=== PATIENT | female | born 1965 | race Caucasian/White ===

== ENCOUNTER 2016-06-26 06:58 | Emergency (ER) | payer MEDICARE, MEDICAID ==
[2016-06-26] MEDS ORDERED: HYDROmorphone 2 MG/ML SDV IM ONE (07:36)
--- NOTE | 2016-06-26 08:29 | EDM.PDOC ---
ED HPI Trauma - General Chief Complaint: Lower Extremity Injury/Pain Stated Complaint: PAIN IN BACK AND LEGS, FALLING Time Seen by Provider: 06/26/16 07:15 Source: Reports: Patient, Family History Limitations: Reports: Physical impairment - History of Present Illness INITIAL COMMENTS - FREE TEXT/NARRATIVE: 51 NA female came to the ed due to chronic low back pain, which is worsening. No trauma, Amitriptylin does not help, pt is "allegic" to motrin and morphin. Pain is shooting from her back radiating down to her bilat lower extremities. Pt is ambulating with a wheelchair. No stool or urine incontinence. Pt has frequent falls, Fibromyalgia and peripheral neuropathy Symptom Onset Date: 06/25/16 Symptom Onset Time: 07:00 Occurred When: other (chronic 3 years ago, worse since yesterday.) Allergies/ADRs: Allergies aspirin Allergy (Verified 06/26/16 07:17) Hives celecoxib [From Celebrex] Allergy (Verified 06/26/16 07:17) Mouth Sores ibuprofen Allergy (Verified 06/26/16 07:17) Hives Latex, Natural Rubber Allergy (Verified 06/26/16 07:17) Itching morphine Allergy (Verified 06/26/16 07:17) Nausea Penicillins Allergy (Verified 06/26/16 07:17) Hives Home Medications: Ambulatory Orders Acetaminophen [Tylenol Arthritis] 650 mg PO QID PRN 02/11/13 [Confirmed 06/26/16 ] Multivitamin [Daily Multiple Vitamin] 1 tab PO DAILY 02/11/13 [Confirmed ] Omeprazole [Omeprazole] 40 mg PO DAILY 02/11/13 [Confirmed 06/26/16] Amitriptyline [Elavil] 150 mg PO BEDTIME 11/15/13 [Confirmed 06/26/16] buPROPion HCl [Wellbutrin SR] 150 mg PO DAILY 06/10/14 [Confirmed 06/26/16] Docusate Sodium [Doc-Q-Lace] 200 mg BEDTIME 07/22/14 [Confirmed 06/26/16] Zonisamide [Zonisamide] 25 mg PO BID 07/22/14 [Confirmed 06/26/16] busPIRone HCl [Buspirone HCl] 7.5 mg PO BID 07/22/14 [Confirmed 06/26/16] Venlafaxine HCl [Venlafaxine ER] 1 tab PO DAILY 04/17/15 [Confirmed 06/26/16] ARIPiprazole [Abilify] 2 mg PO DAILY 08/06/15 [Confirmed 06/26/16] hydrOXYzine Pamoate [Vistaril] 1 cap PO BID 11/12/15 [Confirmed 06/26/16] Acetaminophen/HYDROcodone [[place] 325-5 MG] 1 tab PO Q4H PRN #20 tab 02/07/16 [ Confirmed 06/26/16] oxyCODONE HCl/Acetaminophen [Percocet 5-325 mg Tablet] 1 each PO Q6HR PRN #10 tablet 06/26/16 Past Medical History HEENT History: Reports: Impaired vision Other HEENT History: enlarged thyroid 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: Reports: Musculoskeletal History: Reports: Neck pain, chronic Neurological History: Reports: Neuropathy, peripheral Psychiatric History: Reports: Anxiety, Depression Endocrine/Metabolic History: Reports: Other (see below) Other Endocrine/Metabolic History: enlarged thyroid - Past Surgical History GI Surgical History: Reports: EGD Social & Family History - Family History Family Medical History: Noncontributory - Tobacco Use Smoking Status *Q: Current Every Day Smoker Years of Tobacco use: 34 Packs/Tins Daily: 0.5 Used Tobacco, but Quit: No Second Hand Smoke Exposure: No - Caffeine Use Caffeine Use: Reports: Coffee, Soda, Tea - Alcohol Use Days Per Week of Alcohol Use: 0 - Recreational Drug Use Recreational Drug Use: No - Living Situation & Occupation Living situation: Reports: alone Occupation: disabled Review of Systems - Review of Systems Review Of Systems: See Below Constitutional: Reports: no symptoms Eyes: Reports: no symptoms Ears: Reports: no symptoms Nose: Reports: no symptoms Mouth/Throat: Reports: no symptoms Respiratory: Reports: No Symptoms Cardiovascular: Reports: no symptoms GI/Abdominal: Reports: No symptoms Genitourinary: Reports: no symptoms Musculoskeletal: Reports: back pain Skin: Reports: no symptoms Neurological: Reports: No Symptoms Psychiatric: Reports: no symptoms Trauma Exam - Physical Exam Exam: See Below Exam Limited By: No limitations General Appearance: Reports: alert, WD/WN, mild distress, obese Head: Reports: atraumatic, normocephalic Eyes: bilateral eye: normal inspection Ears: Reports: normal external exam Nose: Reports: normal inspection, normal mucousa, no blood Throat/Mouth: Reports: Normal inspection, Normal lips, Normal gums, Normal voice , No airway compromise Neck: Reports: non-tender, full range of motion, normal alignment, normal inspection Respiratory Exam: Reports: no respiratory distress, lungs clear, normal breath sounds, no accessory muscle use, chest non-tender Cardiovascular: Reports: normal peripheral pulses, regular rate, rhythm, no edema, no gallop, no JVD, no murmur, no rub GI/Abdominal: Reports: normal bowel sounds, soft, non tender, no organomegaly (Female) Exam: Deferred Rectal (Female) Exam: Deferred Back: Reports: decreased range of motion, vertebral tenderness Neurologic: Reports: bay stocker II-XII nml as tested, no motor/sensory deficits, alert , oriented x 3 Skin: Reports: Normal color, Warm/dry - Maysel Coma Score Best Eye Response (Tessa): (4) open spontaneously Best Verbal Response (Tessa): (5) oriented Best Motor Response (Maysel): (6) obeys commands Maysel Total: 15 Course - Vital Signs Text/Narrative:: 51 NA female came to the ed due to chronic low back pain, which is worsening. No trauma, Amitriptylin does not help, pt is "allegic" to motrin and morphin. Pain is shooting from her back radiating down to her bilat lower extremities. Pt is ambulating with a walker. No stool or urine incontinence. Pt has frequent falls, Fibromyalgia and peripheral neuropathy PE: Chronic low back pain with sciatica Imaging: CT L spine: Deg disease with central spinal stenosis. Impression: Chronic low back pain with acute exacerbation, spinal stenosis. Tx: Dilaudid Reexam: Improved Plan: D/C with instructions Last Recorded V/S: Last Vital Signs Temp 36.4 C 06/26/16 07:15 Pulse 80 06/26/16 07:15 Resp 17 06/26/16 07:15 BP 98/65 06/26/16 07:15 Pulse Ox 100 06/26/16 07:15 - Orders/Labs/Meds Orders: Active Orders 24 hr Category Date Time Status Lumbar Spine wo Cont [CT] Stat Exams 06/26/16 07:35 Taken Meds: Medications Discontinued Medications Generic Name Dose Route Start Last Admin Trade Name Freq PRN Reason Stop Dose Admin Hydromorphone HCl 1 mg 04/08/17 07:36 06/26/16 07:43 Dilaudid IM 06/26/16 07:37 1 mg ONETIME ONE Administration Departure - Departure Time of Disposition: 08:43 Disposition: Home, Self-Care 01 Condition: good Clinical Impression: Spinal stenosis of lumbar region Low back pain Qualifiers: Chronicity: chronic Back pain laterality: bilateral Sciatica presence: with sciatica Sciatica laterality: bilateral sciatica Qualified Code(s): M54.42 - Lumbago with sciatica, left side Prescriptions: oxyCODONE HCl/Acetaminophen [Percocet 5-325 mg Tablet] 1 each PO Q6HR PRN #10 tablet PRN Reason: for severe pain only Instructions: Spinal Stenosis Referrals: Elma Bustillo, DAYCARE WORKER [Primary Care Provider] - Forms: ED Department Discharge Additional Instructions: Please f/u with a PMD/nutrient management specialist, please apply ice lower back, please take the pain meds. Please come back if your symptoms get worse acutely. - My Orders Last 24 Hours: My Active Orders 06/26/16 07:35 Lumbar Spine wo Cont [CT] Stat - Assessment/Plan Last 24 Hours: My Active Orders 06/26/16 07:35 Lumbar Spine wo Cont [CT] Stat
[2016-06-26 09:01] VITALS: BP 93/62
== END 2016-06-26 08:58 | disposition home or self-care (01) ==
LOC: FB.ED 06:58
DX: M48.06 Spinal stenosis, lumbar region (principal); F41.9 Anxiety disorder, unspecified; F32.9 Major depressive disorder, single episode, unspecified; F17.210 Nicotine dependence, cigarettes, uncomplicated; Z88.0 Allergy status to penicillin; Z88.8 Allergy status to other drugs, medicaments and biological substances; Z98.890 Other specified postprocedural states; Z88.6 Allergy status to analgesic agent; Z88.5 Allergy status to narcotic agent; Z91.040 Latex allergy status
CPT/HCPCS: 72131; 96372; 99283; J1170; 99284

== ENCOUNTER 2016-09-26 20:10 | Emergency (ER) | payer MEDICARE, MEDICAID ==
[2016-09-26 20:39] VITALS: BP 119/68
[2016-09-26] MEDS ORDERED: Acetaminophen/HYDROcodone 325-5 MG Tab PO ONE (23:00)
--- NOTE | 2016-09-28 01:21 | ER ---
DATE SEEN: 09/26/2016 TIME SEEN: 2030 hours. HISTORY OF PRESENT ILLNESS: This 51-year-old woman comes in with history fall and concussion. The patient was seen at 2230 hours this evening. The patient fell 09/26/2016. She was not drinking. Does not use alcohol. She had been on heavy alcohol until 2013 and has been on the wagon since. 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 She fell in her home yesterday and did not use her walker and scraped the left side of her face at the angle of the eye on the left side and also the left infranasal supralabial area. No loss of consciousness. No increased weakness left or right side. She has had intermittent drainage in left ear. She was last treated for an ear infection on 09/11/2016. She has had pain and drainage in her ear on and off since the last month. Known to have mastoiditis many years ago. Ear is not cleaned for approximately a week and a half. She has mild headache. She notes she had a skull fracture 11/2015. Office evaluation of the patient's CT performed at that time, we not have the record of any CT performed at that time must have been performed at a different institution. She was concerned about the headache is 10/10. Left eye retro-orbital discomfort described as throbbing. She denies neck stiffness or compromise in vision. REVIEW OF SYSTEMS: She has poor hearing in the left ear. She has decreased vision in left eye over the years. She has difficulty sleeping last night, slept for 45 minutes and would be up for an hour secondary to the pain in her head. She has used melatonin in the past. She was diagnosed with TMJ, diagnosed and treated by Dr. Jaimes at [facility] and he periodically injects Botox to diminish her pain she has with TMJ. She relates to me in November, she fell against the freezer and then fell onto the floor and had a seizure. She is on seizure medicine, lamotrigine 150 mg daily. She also has GERD and when she has panic attacks, she uses albuterol for bronchospasm. In the past, she has suffered two fractures of tailbone and the other was bilateral wrist fractures. ALLERGIES: 1. Aspirin. 2. Celebrex. 3. Ibuprofen. 4. Latex. 5. Morphine. 6. Penicillin. OTHER DIAGNOSES: Previous history of pleuritis, bronchitis, spinal stenosis of the lumbar region, and low back pain. PHYSICAL EXAMINATION: VITAL SIGNS: Blood pressure 119/68, heart rate 86, respirations 18, oxygen saturation 100%, and temperature is 36.5 degrees centigrade. CONSTITUTIONAL: The patient has an abrasion on the left lateral orbit and also superficial abrasions left infranasal area. There is no ecchymosis or swelling. She is alert. Looks tired. She has been lying inside. States she did not sleep last night, so she feels exhausted. HEENT: Eye grounds are normal. PERRLA intact. TMs, right is normal. Left has multiple scars on and it is almost can be described as multiloculated, almost bubbled scaring on the ear without any fluid level demonstrated. When I discussed this with her, she said when she saw the other doctor the other day, she was noted to have a fluid level in the right ear, but I did not see right ear fluid level. She has some mild discomfort at the left temporal area and no ecchymosis swelling or abrasion. Mild suboccipital myalgia. Range of motion of neck is not abnormal. Spinous process, mild discomfort. Anterior neck is without abnormality. No bruits and no thyromegaly or masses or cervical adenopathy. Percussion of the mastoid on the left side is tender. The right is nontender. LUNGS: Clear to auscultation without rales, rhonchi, or wheezes. Chest wall is nontender to palpation. HEART: S1, S2. No murmur. Regular rate and rhythm. ABDOMEN: Soft. No guarding. No abdominal discomfort. EXTREMITIES: Without abnormality. No edema. NEURO: Deep tendon reflexes, upper and lower extremities symmetrical, 1+ normoactive. Cranial nerves 2 through 12 intact. Oriented x3. Gait intact. No pronator drift. Muscle strength is intact bilateral. It is interesting to note, she has some dysesthesia of foot, more notable in left than the right. It is on the left lateral foot and none on the right. Also, she has decreased muscle strength. There is a slight slapping of her gait when she walks, slightly wide-based. CAT scan of the maxillofacial bones and also head is without abnormality except for she has left mastoiditis with the patient slight fluid level noted. There was no cervical spine maxillofacial head CT as noted above. LABORATORY STUDIES: White count 11,000, PMNs 77, lymphocytes 17, monos 5, platelets 252,000 hemoglobin 13.6. Complete metabolic panel is normal. The only elevation is alkaline phosphatase abnormal at 126, mildly elevated. Urinalysis moderate occult blood, 1+, urobilinogen, few squamous epithelials and few bacteria. Toxicology screen and urine is negative except for positive for benzos. She takes Ativan. She did take Ativan today because she had difficulty sleeping, felt miserable. ASSESSMENT: 1. Headache secondary to concussion. 2. Falling secondary to peripheral neuropathy and gait disturbance. 3. Incidentaloma, mastoiditis on the left side. 4. No evidence for leukocytosis or neutrophilia to suggest ongoing infection. Mastoiditis is probably stable. She had previous multiple ear surgeries, - no clinical evidence for mastoiditis. Percussion fo the mastoids is without pain. 5. Status post previous hysterectomy for hemorrhage, 1, para 1-0-0-1. 6. She is . Has a support system. 7. Obesity 270 pounds. She is a smoker, half a pack per day. 8. History of panic attacks, which resolved without resultant bronchospasm, this resolved with albuterol, PMHx. of "skull fracture." She relates sometime in the past she fell backwards, her body hit a freezer , bounced of the freezer thent her head struck a solid wooden floor resulting in a concussion. I do not have documentation of the skull fracture in any studies done this hospital. 9. Status post old tailbone fracture and bilateral wrist fractures. 10.Difficulty sleeping secondary to headache and left retro orbital cephalgia. This can be severe as 12/28. 11.Concussion. 12.Incidentaloma of the mastoiditis, but I do not think this is contributing to the patient's headache. PLAN: The patient dispensed hydrocodone 8 tablets 1 q.4 hours p.r.n. severe headache. Otherwise, to use 1000 mg Tylenol, 600 mg ibuprofen q.6 hours for headache. She has medications for her headaches: Lyrica and Lamictal. She is to continue those medications. She has not taken her evening medicines yet. The patient reassured that we did not feel the mastoiditis was a factor in her headache presently. I discussed the mastoiditis with Dr. Ruiz, infectious disease specialist in [facility]. He was not concerned about the incidentaloma of mastoiditis and did not feel it has any relationship with her symptoms of today. He advised not to treat with the antibiotics. The patient to follow up with ENT. Follow up with doctor in a week. Treat headache as noted above. He has 8 tablets of hydrocodone, this is to treat breakthrough headaches if not resolve with 1000 mg Tylenol, and 600 mg ibuprofen. /[id number] ROBEL/SONAM REDMAN
== END 2016-09-26 23:00 | disposition home or self-care (01) ==
LOC: FB.ED 20:10
DX: S06.0X9A Concussion with loss of consciousness of unspecified duration, initial encounter (principal); S00.212A Abrasion of left eyelid and periocular area, initial encounter; F17.210 Nicotine dependence, cigarettes, uncomplicated; E66.9 Obesity, unspecified; F41.0 Panic disorder [episodic paroxysmal anxiety]; Z68.36 Body mass index [BMI] 36.0-36.9, adult; W19.XXXA Unspecified fall, initial encounter; Y92.009 Unspecified place in unspecified non-institutional (private) residence as the place of occurrence of the external cause
CPT/HCPCS: 36415; 70450; 70486; 80053; 80305; 81001; 85025; 85651; 99284; A9270

== ENCOUNTER 2016-10-26 15:05 | Emergency (ER) | payer MEDICARE, MEDICAID ==
--- NOTE | 2016-10-26 16:16 | EDM.PDOCBH ---
ED HPI GENERAL MEDICAL PROBLEM - General Chief Complaint: Behavioral/Psych Stated Complaint: MENTAL STATUS Time Seen by Provider: 10/26/16 16:05 Source of Information: Reports: Patient History Limitations: Reports: No Limitations - History of Present Illness INITIAL COMMENTS - FREE TEXT/NARRATIVE: 51 yo female presents for medical clearance before voluntarily being admitted to a mental health facility in [place] today. A list of requested labs accompanies her. Has a pHx of mental health issues. Mainly has depression and anxiety. Onset: Gradual Duration: Day(s): Location: Reports: Head Quality: Reports: Other (no pain) Severity: Mild Improves with: Reports: Medication Worsens with: Reports: Other (unknown) Context: Reports: Other (chronic anxiety and depression.) Associated Symptoms: Reports: No Other Symptoms Treatments CUSTOMER SUPPORT ENGINEER: Reports: Other (see below) (Is on psych meds already.) Other Treatments CUSTOMER SUPPORT ENGINEER: crisis center personal at her home - Related Data Allergies Allergy/AdvReac Type Severity Reaction Status Date / Time aspirin Allergy Hives Verified 10/26/16 15:20 celecoxib [From Celebrex] Allergy Mouth Sores Verified 10/26/16 15:20 ibuprofen Allergy Hives Verified 10/26/16 15:20 Latex, Natural Rubber Allergy Itching Verified 10/26/16 15:20 morphine Allergy Nausea Verified 10/26/16 15:20 Penicillins Allergy Hives Verified 10/26/16 15:20 Home Meds: Home Meds Multivitamin [Daily Multiple Vitamin] 1 tab PO DAILY 02/11/13 [History] Omeprazole [Omeprazole] 40 mg PO DAILY 02/11/13 [History] Docusate Sodium [Doc-Q-Lace] 200 mg PO BEDTIME 07/22/14 [History] Venlafaxine HCl [Venlafaxine ER] 1 tab PO DAILY 04/17/15 [History] Albuterol [Ventolin HFA] 1 inh IH DAILY 09/26/16 [History] Ranitidine [Zantac] 150 mg PO BID 09/26/16 [History] lamoTRIgine [Lamotrigine] 150 mg PO DAILY 09/26/16 [History] metFORMIN [Glucophage] 500 mg PO BID 09/26/16 [History] Past Medical History HEENT History: Reports: Impaired Vision Other HEENT History: enlarged thyroid Respiratory History: Reports: Bronchitis, Recurrent 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: 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: Musculoskeletal History: Reports: Neck Pain, Chronic Neurological History: Reports: Neuropathy, Peripheral Psychiatric History: Reports: Anxiety, Depression Endocrine/Metabolic History: Reports: Other (See Below) Other Endocrine/Metabolic History: enlarged thyroid - Infectious Disease History Infectious Disease History: Reports: Chicken Pox, Shingles - Past Surgical History GI Surgical History: Reports: Bariatric Procedure, EGD Social & Family History - Family History Family Medical History: Noncontributory - Tobacco Use Smoking Status *Q: Current Every Day Smoker Years of Tobacco use: 30 Packs/Tins Daily: 1 Used Tobacco, but Quit: No Second Hand Smoke Exposure: Yes - Caffeine Use Caffeine Use: Reports: Coffee, Soda - Alcohol Use Days Per Week of Alcohol Use: 0 - Recreational Drug Use Recreational Drug Use: No - Living Situation & Occupation Living situation: Reports: Alone Occupation: Disabled ED ROS GENERAL - Review of Systems Review Of Systems: See Below Constitutional: Reports: No Symptoms HEENT: Reports: No Symptoms Respiratory: Reports: No Symptoms Cardiovascular: Reports: No Symptoms Endocrine: Reports: No Symptoms GI/Abdominal: Reports: No Symptoms : Reports: No Symptoms Musculoskeletal: Reports: No Symptoms Skin: Reports: No Symptoms Neurological: Reports: No Symptoms Psychiatric: Reports: Anxiety, Depression. Denies: Homicidal Ideation, Suicidal Ideation ED EXAM, BEHAVIORAL HEALTH - Physical Exam Exam: See Below Exam Limited By: No Limitations General Appearance: Alert, WD/WN, No Apparent Distress Eye Exam: Bilateral Eye: EOMI, PERRL Ears: Normal External Exam, Normal Canal, Hearing Grossly Normal Nose: Normal Inspection, Normal Mucosa, No Blood Throat/Mouth: Normal Inspection, Normal Lips, Normal Oropharynx, Normal Voice, No Airway Compromise Head: Atraumatic, Normocephalic Neck: Normal Inspection, Supple Respiratory/Chest: No Respiratory Distress, Lungs Clear, Normal Breath Sounds, No Accessory Muscle Use Cardiovascular: Regular Rate, Rhythm, No Edema GI/Abdominal: Soft, Non-Tender Back Exam: Normal Inspection. No: CVA Tenderness (R), CVA Tenderness (L) Extremities: Normal Inspection, Normal Range of Motion, Non-Tender, No Pedal Edema Neurological: Alert, Normal Mood/Affect, CN II-XII Intact, Normal Cognition, No Motor/Sensory Deficits, Oriented x 3 Psychiatric: Alert, Normal Affect, Depressed Mood, Other (anxious) Skin Exam: Warm, Dry, Intact, Normal color, No rash COURSE, BEHAVIORAL HEALTH COMP - Course Vital Signs: Last Vital Signs Temp 35.9 C 10/26/16 15:25 Pulse 90 10/26/16 15:25 Resp 14 10/26/16 15:25 BP 112/48 L 10/26/16 15:25 Pulse Ox 99 10/26/16 15:25 Orders, Labs, Meds: Active Orders 24 hr Category Date Time Status UA W/MICROSCOPIC [URIN] Stat Lab 10/26/16 16:00 Received Laboratory Tests 10/26/16 10/26/16 10/26/16 Range/Units 16:00 16:15 16:15 WBC 7.7 (4.5-12.0) X10-3/uL RBC 4.51 (3.23-5.20) x10(6)uL Hgb 14.4 (11.5-15.5) g/dL Hct 43.6 (30.0-51.3) % MCV 96.7 H (80-96) fL MCH 32.0 (27.7-33.6) pg MCHC 33.1 (32.2-35.4) g/dL RDW 14.0 (11.5-15.5) % Plt Count 258 (125-369) X10(3)uL MPV 8.5 (7.4-10.4) fL Neut % (Auto) 70.8 (46-82) % Lymph % (Auto) 24.5 (13-37) % Sutter % (Auto) 3.4 L (4-12) % Eos % (Auto) 1 (1.0-5.0) % Baso % (Auto) 1 (0-2) % Neut # (Auto) 5.4 (1.6-8.3) # Lymph # (Auto) 1.9 (0.6-5.0) # Sutter # (Auto) 0.3 (0.0-1.3) # Eos # (Auto) 0.0 (0.0-0.8) # Baso # (Auto) 0.1 (0.0-0.2) # Sodium 138 (135-145) mmol/L Potassium 3.4 L (3.5-5.3) mmol/L Chloride 103 D (100-110) mmol/L Carbon Dioxide 26 (23-29) mmol/L BUN 6 (5-20) mg/dL Creatinine 0.7 (0.6-1.3) mg/dL Est Cr Clr Drug Dosing TNP Estimated GFR (MDRD) > 60 (>60) BUN/Creatinine Ratio 8.6 L (9-20) Glucose 164 H (80-116) mg/dL Calcium 9.4 (8.6-10.2) mg/dL Total Bilirubin 0.6 (0.1-1.3) mg/dL AST 25 D (5-27) IU/L ALT 17 D (14-26) IU/L Alkaline Phosphatase 104 (56-112) IU/L Total Protein 6.4 (6.0-8.0) g/dL Albumin 4.0 (3.5-5.2) g/dL Globulin 2.4 g/dL Albumin/Globulin Ratio 1.7 Urine Opiates Screen Negative (NEGATIVE) Ur Oxycodone Screen Negative (NEGATIVE) Ur Propoxyphene Screen Negative (NEGATIVE) Ur Barbituates Screen Negative (NEGATIVE) Ur Tricyclics Screen Negative (NEGATIVE) Ur Phencyclidine Scrn Negative (NEGATIVE) Ur Amphetamine Screen Negative (NEGATIVE) Urine MDMA Screen Negative (NEGATIVE) U Benzodiazepines Scrn Positive H (NEGATIVE) U Cocaine Metab Screen Negative (NEGATIVE) U Marijuana (THC) Screen Negative (NEGATIVE) Ethyl Alcohol (<0.01) % 10/26/16 Range/Units 16:15 WBC (4.5-12.0) X10-3/uL RBC (3.23-5.20) x10(6)uL Hgb (11.5-15.5) g/dL Hct (30.0-51.3) % MCV (80-96) fL MCH (27.7-33.6) pg MCHC (32.2-35.4) g/dL RDW (11.5-15.5) % Plt Count (125-369) X10(3)uL MPV (7.4-10.4) fL Neut % (Auto) (46-82) % Lymph % (Auto) (13-37) % Sutter % (Auto) (4-12) % Eos % (Auto) (1.0-5.0) % Baso % (Auto) (0-2) % Neut # (Auto) (1.6-8.3) # Lymph # (Auto) (0.6-5.0) # Sutter # (Auto) (0.0-1.3) # Eos # (Auto) (0.0-0.8) # Baso # (Auto) (0.0-0.2) # Sodium (135-145) mmol/L Potassium (3.5-5.3) mmol/L Chloride (100-110) mmol/L Carbon Dioxide (23-29) mmol/L BUN (5-20) mg/dL Creatinine (0.6-1.3) mg/dL Est Cr Clr Drug Dosing Estimated GFR (MDRD) (>60) BUN/Creatinine Ratio (9-20) Glucose (80-116) mg/dL Calcium (8.6-10.2) mg/dL Total Bilirubin (0.1-1.3) mg/dL AST (5-27) IU/L ALT (14-26) IU/L Alkaline Phosphatase (56-112) IU/L Total Protein (6.0-8.0) g/dL Albumin (3.5-5.2) g/dL Globulin g/dL Albumin/Globulin Ratio Urine Opiates Screen (NEGATIVE) Ur Oxycodone Screen (NEGATIVE) Ur Propoxyphene Screen (NEGATIVE) Ur Barbituates Screen (NEGATIVE) Ur Tricyclics Screen (NEGATIVE) Ur Phencyclidine Scrn (NEGATIVE) Ur Amphetamine Screen (NEGATIVE) Urine MDMA Screen (NEGATIVE) U Benzodiazepines Scrn (NEGATIVE) U Cocaine Metab Screen (NEGATIVE) U Marijuana (THC) Screen (NEGATIVE) Ethyl Alcohol < 0.01 (<0.01) % Departure - Departure Time of Disposition: 16:43 Disposition: Home, Self-Care 01 Condition: Good Clinical Impression: Anxiety Depression Qualifiers: Depression Type: major depressive disorder Major depression recurrence: recurrent Active/Remission status: currently active Major depression episode severity: moderate Qualified Code(s): F33.1 - Major depressive disorder, recurrent, moderate - Discharge Information Referrals: Elma Bustillo, AGRICULTURAL ECONOMICS TEACHER [Primary Care Provider] - Forms: ED Department Discharge - My Orders Last 24 Hours: My Active Orders 10/26/16 16:00 UA W/MICROSCOPIC [URIN] Stat - Assessment/Plan Last 24 Hours: My Active Orders 10/26/16 16:00 UA W/MICROSCOPIC [URIN] Stat
[2016-10-26 16:56] VITALS: BP 103/56
== END 2016-10-26 16:55 | disposition other institution (70) ==
LOC: FB.ED 15:05
DX: F33.1 Major depressive disorder, recurrent, moderate (principal); F41.9 Anxiety disorder, unspecified; F17.210 Nicotine dependence, cigarettes, uncomplicated; Z88.5 Allergy status to narcotic agent; Z88.8 Allergy status to other drugs, medicaments and biological substances; Z91.040 Latex allergy status; Z88.0 Allergy status to penicillin; Z79.84 Long term (current) use of oral hypoglycemic drugs; Z79.899 Other long term (current) drug therapy
CPT/HCPCS: 36415; 80053; 80305; 81001; 85025; 99284; G0480; 99283

== ENCOUNTER 2016-11-13 11:49 | Emergency (ER) | payer MEDICARE, MEDICAID ==
--- NOTE | 2016-11-13 12:30 | EDM.PDOC ---
ED HPI GENERAL MEDICAL PROBLEM - General Chief Complaint: General Stated Complaint: WEAK Time Seen by Provider: 11/13/16 11:56 Source of Information: Reports: Patient, Family History Limitations: Reports: Physical Impairment - History of Present Illness INITIAL COMMENTS - FREE TEXT/NARRATIVE: 51 years old smoker, disabled, H/O Fibromyalgia, chronic low back pain, came to the ed due to nausea, no vomiting, and worsening low back pain. Pt denied trauma. She complains of gen weakness as well. She had an MRI of her lower back not log ago, which did not show any acute changes. Pt stated she had loose stool yesterday. She does not take ABX at this time. No other acute medical issues at this time. Onset: Unknown/Unsure Onset Date: 11/13/16 Onset Time: 07:31 Duration: Hour(s): Location: Reports: Back, Generalized Quality: Reports: Same as Previous Episode Severity: Mild Improves with: Reports: Rest Worsens with: Reports: Movement Context: Reports: Other (Fibromyalgia) Associated Symptoms: Reports: Weakness Generalized Pain Score (Numeric/FACES): 3 - Related Data Allergies Allergy/AdvReac Type Severity Reaction Status Date / Time aspirin Allergy Hives Verified 11/13/16 11:54 celecoxib [From Celebrex] Allergy Mouth Sores Verified 11/13/16 11:54 ibuprofen Allergy Hives Verified 11/13/16 11:54 Latex, Natural Rubber Allergy Itching Verified 11/13/16 11:54 morphine Allergy Nausea Verified 11/13/16 11:54 Penicillins Allergy Hives Verified 11/13/16 11:54 Home Meds: Home Meds Multivitamin [Daily Multiple Vitamin] 1 tab PO DAILY 02/11/13 [History] Omeprazole [Omeprazole] 40 mg PO DAILY 02/11/13 [History] Docusate Sodium [Doc-Q-Lace] 200 mg PO BEDTIME 07/22/14 [History] Venlafaxine HCl [Venlafaxine ER] 1 tab PO DAILY 04/17/15 [History] Albuterol [Ventolin HFA] 1 inh IH DAILY 09/26/16 [History] Ranitidine [Zantac] 150 mg PO BID 09/26/16 [History] lamoTRIgine [Lamotrigine] 150 mg PO DAILY 09/26/16 [History] metFORMIN [Glucophage] 500 mg PO BID 09/26/16 [History] Past Medical History HEENT History: Reports: Impaired Vision Other HEENT History: enlarged thyroid Respiratory History: Reports: Bronchitis, Recurrent INCIDENT 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 CONSULTANT History: Reports: Musculoskeletal History: Reports: Fibromyalgia, Neck Pain, Chronic Neurological History: Reports: Neuropathy, Peripheral Psychiatric History: Reports: Anxiety, Depression Endocrine/Metabolic History: Reports: Other (See Below) Other Endocrine/Metabolic History: enlarged thyroid - Infectious Disease History Infectious Disease History: Reports: Chicken Pox, Shingles - Past Surgical History GI Surgical History: Reports: Bariatric Procedure, EGD Social & Family History - Family History Family Medical History: Noncontributory - Tobacco Use Smoking Status *Q: Current Every Day Smoker Years of Tobacco use: 20 Packs/Tins Daily: 0.5 Used Tobacco, but Quit: No Second Hand Smoke Exposure: Yes - Caffeine Use Caffeine Use: Reports: Coffee, Soda - Alcohol Use Days Per Week of Alcohol Use: 0 - Recreational Drug Use Recreational Drug Use: No - Living Situation & Occupation Living situation: Reports: Alone Occupation: Disabled ED ROS GENERAL - Review of Systems Review Of Systems: See Below Constitutional: Reports: Weakness HEENT: Reports: No Symptoms Respiratory: Reports: No Symptoms Cardiovascular: Reports: No Symptoms Endocrine: Reports: No Symptoms GI/Abdominal: Reports: Abdominal Pain (gen, not new) : Reports: No Symptoms Musculoskeletal: Reports: Muscle Pain Skin: Reports: No Symptoms Neurological: Reports: Weakness Psychiatric: Reports: Depression (depressed mood.) Hematologic/Lymphatic: Reports: No Symptoms Immunologic: Reports: No Symptoms ED EXAM, GENERAL - Physical Exam Exam: See Below Exam Limited By: Physical Impairment General Appearance: Alert, WD/WN, Mild Distress Eye Exam: Bilateral Eye: Normal Inspection Ears: Normal External Exam Ear Exam: Bilateral Ear: Auricle Normal Nose: Normal Inspection, Normal Mucosa Throat/Mouth: Normal Inspection, Normal Lips Head: Atraumatic, Normocephalic Neck: Normal Inspection Respiratory/Chest: No Respiratory Distress, Lungs Clear, Normal Breath Sounds, No Accessory Muscle Use, Chest Non-Tender Cardiovascular: Normal Peripheral Pulses, Regular Rate, Rhythm, No Edema, No JVD Peripheral Pulses: 2+: Radial (L), Radial (R) GI/Abdominal: Normal Bowel Sounds, Tender (gen. minor) (Female) Exam: Deferred Rectal (Female) Exam: Deferred Back Exam: Normal Inspection, Full Range of Motion, Vertebral Tenderness (not new) Extremities: Normal Inspection, Normal Range of Motion, Non-Tender, No Pedal Edema Neurological: Alert, Oriented, CN II-XII Intact, Normal Cognition, Abnormal Gait (is usinga walker, not new) Psychiatric: Normal Affect, Depressed Mood Skin Exam: Warm, Dry, Intact, Normal Color, No Rash Course - Vital Signs Text/Narrative:: 51 years old smoker, disabled, H/O Fibromyalgia, chronic low back pain, came to the ed due to nausea, no vomiting, and worsening low back pain. Pt denied trauma. She complains of gen weakness as well. She had an MRI of her lower back not log ago, which did not show any acute changes. Pt stated she had loose stool yesterday. She does not take ABX at this time. No other acute medical issues at this time. BP 102/36 pulse 86, Temp 36.6 PE: low back pain/tenderness, gen weakness. Depressed mood. Frequent ED visits. Labs: CBC, BMP and UA were neg Impression: Chronic low back pain, H/O Fibromyalgia, chronic disabled, nonfocal gen. weakness(old). Tx: Ice to lower back Reexam: improved Plan: D/C with instructions. Last Recorded V/S: Last Vital Signs Temp 36.6 C 11/13/16 11:56 Pulse 69 11/13/16 13:12 Resp 14 11/13/16 13:12 BP 102/60 11/13/16 13:12 Pulse Ox 97 11/13/16 13:12 - Orders/Labs/Meds Orders: Active Orders 24 hr Category Date Time Status Cooling Warming Measures [RC] ASDIRECTED Care 11/13/16 12:25 Ordered Ice Bag [Ice Therapy] [OM.PC] Routine Oth 11/13/16 12:25 Ordered Labs: Laboratory Tests 11/13/16 11/13/16 11/13/16 Range/Units 12:14 12:35 12:35 WBC 7.6 (4.5-12.0) X10-3/uL RBC 4.31 (3.23-5.20) x10(6)uL Hgb 14.5 (11.5-15.5) g/dL Hct 41.4 (30.0-51.3) % MCV 96.1 H (80-96) fL MCH 33.6 (27.7-33.6) pg MCHC 35.0 (32.2-35.4) g/dL RDW 13.9 (11.5-15.5) % Plt Count 256 (125-369) X10(3)uL MPV 8.5 (7.4-10.4) fL Neut % (Auto) 69.4 (46-82) % Lymph % (Auto) 24.9 (13-37) % Mcmullen % (Auto) 4.2 (4-12) % Eos % (Auto) 1 (1.0-5.0) % Baso % (Auto) 1 (0-2) % Neut # (Auto) 5.2 (1.6-8.3) # Lymph # (Auto) 1.9 (0.6-5.0) # Mcmullen # (Auto) 0.3 (0.0-1.3) # Eos # (Auto) 0.1 (0.0-0.8) # Baso # (Auto) 0.1 (0.0-0.2) # Sodium 141 (135-145) mmol/L Potassium 3.5 (3.5-5.3) mmol/L Chloride 107 (100-110) mmol/L Carbon Dioxide 28 (23-29) mmol/L BUN 9 (5-20) mg/dL Creatinine 0.7 (0.6-1.3) mg/dL Est Cr Clr Drug Dosing 75.20 mL/min Estimated GFR (MDRD) > 60 (>60) BUN/Creatinine Ratio 12.9 (9-20) Glucose 90 (80-116) mg/dL Lactic Acid (0.5-2.2) mmol/L Calcium 8.9 (8.6-10.2) mg/dL Urine Color Yellow (YELLOW) Urine Appearance Clear (CLEAR) Urine pH 7.0 H (5.0-6.5) Ur Specific Cushing 1.010 (1.010-1.025) Urine Protein Negative (NEGATIVE) mg/dL Urine Glucose (UA) Normal (NEGATIVE) mg/dL Urine Ketones Negative (NEGATIVE) mg/dL Urine Occult Blood Negative (NEGATIVE) Urine Nitrite Negative (NEGATIVE) Urine Bilirubin Negative (NEGATIVE) Urine Urobilinogen Normal (NEGATIVE) mg/dL Ur Leukocyte Esterase Negative (NEGATIVE) Urine WBC 0-5 (0) Ur Squamous Epith Cells Few H (NS,R,O) Urine Bacteria Few H (NS) 11/13/16 Range/Units 12:35 WBC (4.5-12.0) X10-3/uL RBC (3.23-5.20) x10(6)uL Hgb (11.5-15.5) g/dL Hct (30.0-51.3) % MCV (80-96) fL MCH (27.7-33.6) pg MCHC (32.2-35.4) g/dL RDW (11.5-15.5) % Plt Count (125-369) X10(3)uL MPV (7.4-10.4) fL Neut % (Auto) (46-82) % Lymph % (Auto) (13-37) % Mcmullen % (Auto) (4-12) % Eos % (Auto) (1.0-5.0) % Baso % (Auto) (0-2) % Neut # (Auto) (1.6-8.3) # Lymph # (Auto) (0.6-5.0) # Mcmullen # (Auto) (0.0-1.3) # Eos # (Auto) (0.0-0.8) # Baso # (Auto) (0.0-0.2) # Sodium (135-145) mmol/L Potassium (3.5-5.3) mmol/L Chloride (100-110) mmol/L Carbon Dioxide (23-29) mmol/L BUN (5-20) mg/dL Creatinine (0.6-1.3) mg/dL Est Cr Clr Drug Dosing mL/min Estimated GFR (MDRD) (>60) BUN/Creatinine Ratio (9-20) Glucose (80-116) mg/dL Lactic Acid 0.9 (0.5-2.2) mmol/L Calcium (8.6-10.2) mg/dL Urine Color (YELLOW) Urine Appearance (CLEAR) Urine pH (5.0-6.5) Ur Specific Cushing (1.010-1.025) Urine Protein (NEGATIVE) mg/dL Urine Glucose (UA) (NEGATIVE) mg/dL Urine Ketones (NEGATIVE) mg/dL Urine Occult Blood (NEGATIVE) Urine Nitrite (NEGATIVE) Urine Bilirubin (NEGATIVE) Urine Urobilinogen (NEGATIVE) mg/dL Ur Leukocyte Esterase (NEGATIVE) Urine WBC (0) Ur Squamous Epith Cells (NS,R,O) Urine Bacteria (NS) Departure - Departure Time of Disposition: 13:09 Disposition: Home, Self-Care 01 Condition: Good Clinical Impression: Generalized weakness Low back pain Qualifiers: Chronicity: chronic Back pain laterality: bilateral Sciatica presence: with sciatica Sciatica laterality: bilateral sciatica Qualified Code(s): M54.42 - Lumbago with sciatica, left side - Discharge Information Referrals: Elma Bustillo, DYNAMICS AX SOLUTION ARCHITECT [Primary Care Provider] - Forms: ED Department Discharge Additional Instructions: Please apply ice to lower back, please cont your current meds, please follow up with your PMD, please come back to the ed if your symptoms get worse acutely. - My Orders Last 24 Hours: My Active Orders 11/13/16 12:25 Cooling Warming Measures [RC] ASDIRECTED Ice Bag [Ice Therapy] [OM.PC] Routine - Assessment/Plan Last 24 Hours: My Active Orders 11/13/16 12:25 Cooling Warming Measures [RC] ASDIRECTED Ice Bag [Ice Therapy] [OM.PC] Routine
[2016-11-13 13:14] VITALS: BP 102/60
== END 2016-11-13 13:13 | disposition home or self-care (01) ==
LOC: FB.ED 11:49
DX: M54.42 Lumbago with sciatica, left side (principal); R53.1 Weakness; F32.9 Major depressive disorder, single episode, unspecified; F17.210 Nicotine dependence, cigarettes, uncomplicated; F41.9 Anxiety disorder, unspecified; Z88.8 Allergy status to other drugs, medicaments and biological substances; Z88.0 Allergy status to penicillin; Z88.5 Allergy status to narcotic agent; Z91.040 Latex allergy status; Z79.84 Long term (current) use of oral hypoglycemic drugs; Z88.6 Allergy status to analgesic agent
CPT/HCPCS: 36415; 80048; 81001; 83605; 85025; 99283; 99284

== ENCOUNTER 2017-10-09 18:40 | Emergency (ER) | payer MEDICARE, MEDICAID ==
[2017-10-09] MEDS ORDERED: Lidocaine 1% 20 ML MDV INJECT ONE (18:41)
[2017-10-09 19:00] VITALS: BP 103/60
[2017-10-09] MEDS ORDERED: Diphtheria,Pertussis(Acell),Tetanus Vaccine 0.5 ML SDV IM ONE (19:38)
--- NOTE | 2017-10-09 19:44 | EDM.PDOC ---
ED HPI GENERAL MEDICAL PROBLEM - General Chief Complaint: Behavioral/Psych Stated Complaint: SELF CUTTING L ARM Time Seen by Provider: 10/09/17 19:10 Source of Information: Reports: Patient, Family History Limitations: Reports: No Limitations - History of Present Illness INITIAL COMMENTS - FREE TEXT/NARRATIVE: Annie comes into [facility] ED with SIB this evening, lacerating her L forearm in numerous places with a razor blade. She has a PMH of BPAD and SIB behaviors, but has not cut for some years. Situational stressors with her son precipitated some relapse of drinking and the cutting. There are no other apparent injuries. Her tetanus vax status needs updating. left arm Pain Score (Numeric/FACES): 9 - Related Data Allergies Allergy/AdvReac Type Severity Reaction Status Date / Time aspirin Allergy Hives Verified 10/09/17 19:10 celecoxib [From Celebrex] Allergy Mouth Sores Verified 10/09/17 19:10 ibuprofen Allergy Hives Verified 10/09/17 19:10 Latex, Natural Rubber Allergy Itching Verified 10/09/17 19:10 morphine Allergy Nausea Verified 10/09/17 19:10 Penicillins Allergy Hives Verified 10/09/17 19:10 Home Meds: Home Meds Multivitamin [Daily Multiple Vitamin] 1 tab PO DAILY 02/11/13 [History] Omeprazole 40 mg PO DAILY 02/11/13 [History] Docusate Sodium [Doc-Q-Lace] 200 mg PO BEDTIME 07/22/14 [History] Venlafaxine HCl [Venlafaxine ER] 1 tab PO DAILY 04/17/15 [History] Albuterol [Ventolin HFA] 1 inh IH DAILY 09/26/16 [History] Ranitidine [Zantac] 150 mg PO BID 09/26/16 [History] lamoTRIgine [Lamotrigine] 150 mg PO DAILY 09/26/16 [History] metFORMIN [Glucophage] 500 mg PO BID 09/26/16 [History] Past Medical History HEENT History: Reports: Impaired Vision Other HEENT History: enlarged thyroid Respiratory History: Reports: Bronchitis, Recurrent 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: Musculoskeletal History: Reports: Fibromyalgia, Neck Pain, Chronic Neurological History: Reports: Neuropathy, Peripheral Psychiatric History: Reports: Anxiety, Depression Endocrine/Metabolic History: Reports: Other (See Below) Other Endocrine/Metabolic History: enlarged thyroid - Infectious Disease History Infectious Disease History: Reports: Chicken Pox, Shingles - Past Surgical History GI Surgical History: Reports: Bariatric Procedure, EGD Social & Family History - Family History Family Medical History: Noncontributory - Tobacco Use Smoking Status *Q: Current Every Day Smoker Years of Tobacco use: 27 Packs/Tins Daily: 0.5 - Caffeine Use Caffeine Use: Reports: Coffee, Soda - Recreational Drug Use Recreational Drug Use: No - Living Situation & Occupation Living situation: Reports: Alone Occupation: Disabled ED ROS GENERAL - Review of Systems Review Of Systems: ROS reveals no pertinent complaints other than HPI. ED EXAM, SKIN/RASH Exam: See Below Exam Limited By: No Limitations General Appearance: Alert, WD/WN, No Apparent Distress Eye Exam: Bilateral Eye: EOMI, Normal Inspection, PERRL Ears: Normal External Exam Nose: Normal Inspection Throat/Mouth: Normal Inspection, Normal Oropharynx Head: Atraumatic Neck: Normal Inspection Respiratory/Chest: Lungs Clear Cardiovascular: Regular Rate, Rhythm Back Exam: Normal Inspection Extremities: Other (L forearm volar aspect: superficial lacerations x 4, and full thickness laceratons x 2) Neurological: Alert, Oriented, CN II-XII Intact, Normal Cognition, Normal Gait, No Motor/Sensory Deficits Psychiatric: Normal Affect, Normal Mood Skin: Warm, Dry, Normal Color ED SKIN PROCEDURES - Laceration/Wound Repair Right Ventral Other Lac/Wound length In cm: 2.5 (5.5 cm) Appearance: Subcutaneous, Other (R forearm; 3.5 cm and 4.0 cm superficial lacerations repaired with DermaBond ) Distal NVT: Neuro & Vascular Intact Anesthetic Type: Local Local Anesthesia - Lidocaine (Xylocaine): 1% Plain Local Anesthetic Volume: 4cc Skin Prep: Chlorhexidine (Hibiciens) Exploration/Debridement/Repair: Wound Explored, No Foreign Material Found Closed with: Sutures, Dermabond Suture Size: 4-0 # of Sutures: 3 (7 for larger wound) Suture Type: Nylon, Interrupted Drain Placement: No Sterile Dressing Applied: Nurse Tetanus Status Addressed: Yes Complications: No Course - Vital Signs Text/Narrative:: Patient tolerated procedures well. Adacel booster given IM. Last Recorded V/S: Last Vital Signs Temp 36.4 C 10/09/17 18:50 Pulse 67 10/09/17 18:50 Resp 16 10/09/17 18:50 BP 103/60 10/09/17 18:50 Pulse Ox 100 10/09/17 18:50 - Orders/Labs/Meds Orders: Active Orders 24 hr Category Date Time Status Vaccines to be Administered [RC] PER UNIT ROUTINE Care 10/09/17 19:39 Ordered Diphth,Pertuss(Acell),Tet Vac [Adacel] Med 10/09/17 19:38 Once 0.5 ml IM .ONCE ONE Medication Orders Diphtheria/Tetanus/Acell Pertussis (Adacel) 0.5 ml IM .ONCE ONE Stop: 10/09/17 19:39 Meds: Medications Generic Name Dose Route Start Last Admin Trade Name Freq PRN Reason Stop Dose Admin Diphtheria/Tetanus/Acell Pertussis 0.5 ml 10/09/17 19:38 Adacel IM 10/09/17 19:39 .ONCE ONE Departure - Departure Time of Disposition: 19:50 Disposition: Home, Self-Care 01 Condition: Good Clinical Impression: Laceration of right forearm Qualifiers: Encounter type: initial encounter Qualified Code(s): S51.811A - Laceration without foreign body of right forearm, initial encounter - Discharge Information *PRESCRIPTION DRUG MONITORING PROGRAM REVIEWED*: Not Applicable *COPY OF PRESCRIPTION DRUG MONITORING REPORT IN PATIENT YARIEL: Not Applicable Referrals: Elma Bustillo, ELECTRICAL SYSTEMS DESIGN ENGINEER [Primary Care Provider] - - Problem List & Annotations (1) Depression SNOMED Code(s): 47241260 Code(s): F32.9 - MAJOR DEPRESSIVE DISORDER, SINGLE EPISODE, UNSPECIFIED Status: Acute Current Visit: No Annotation/Comment:: Annie has BPAD, and agrees to call on counselor tomorrow for follow up. Her sister in law will stay with her tonight. No ETOH. Qualifiers: Depression Type: major depressive disorder Major depression recurrence: recurrent Active/Remission status: currently active Major depression episode severity: moderate Qualified Code(s): F33.1 - Major depressive disorder, recurrent, moderate (2) Laceration of right forearm SNOMED Code(s): 44356010716334977 Code(s): S51.811A - LACERATION W/O FOREIGN BODY OF RIGHT FOREARM, INIT ENCNTR Status: Acute Current Visit: Yes Annotation/Comment:: Routine wound cares, and SR in 10 days. Qualifiers: Encounter type: initial encounter Qualified Code(s): S51.811A - Laceration without foreign body of right forearm, initial encounter - Problem List Review Problem List Initiated/Reviewed/Updated: Yes - My Orders Last 24 Hours: My Active Orders 10/09/17 19:38 Diphth,Pertuss(Acell),Tet Vac [Adacel] 0.5 ml IM .ONCE ONE 10/09/17 19:39 Vaccines to be Administered [RC] PER UNIT ROUTINE - Assessment/Plan Last 24 Hours: My Active Orders 10/09/17 19:38 Diphth,Pertuss(Acell),Tet Vac [Adacel] 0.5 ml IM .ONCE ONE 10/09/17 19:39 Vaccines to be Administered [RC] PER UNIT ROUTINE Plan: Follow up with PCP.
== END 2017-10-09 19:52 | disposition home or self-care (01) ==
LOC: FB.ED 18:40
DX: S51.811A Laceration without foreign body of right forearm, initial encounter (principal); F17.210 Nicotine dependence, cigarettes, uncomplicated; Z88.8 Allergy status to other drugs, medicaments and biological substances; Z88.6 Allergy status to analgesic agent; Z88.5 Allergy status to narcotic agent; Z88.0 Allergy status to penicillin; Z91.040 Latex allergy status; Z79.899 Other long term (current) drug therapy; Z23 Encounter for immunization; W26.8XXA Contact with other sharp object(s), not elsewhere classified, initial encounter
CPT/HCPCS: 12002; 12004; 12005; 90471; 90715; 99283

== ENCOUNTER 2018-06-10 20:55 | Emergency (ER) | payer MEDICARE, OTHER, MEDICAID ==
--- NOTE | 2018-06-10 21:49 | EDM.PDOCBH ---
ED HPI GENERAL MEDICAL PROBLEM - General Stated Complaint: SUICIDAL Time Seen by Provider: 06/10/18 21:49 Source of Information: Reports: Patient History Limitations: Reports: Intoxication - History of Present Illness INITIAL COMMENTS - FREE TEXT/NARRATIVE: Annie came in with the police ,having complained of thoughts of self harm,and harming others. She complained that she has "pain " in her heart,from a recent argument with her ex daughter in law. She had no definite plan,but has cutting herself,to ease her aforementioned pain,and has had some hallucinations as well. She has a long h/o PTSD,Anxiety,MDD. Tonight,she does have some evidence of alcohol intoxication. - Related Data Allergies Allergy/AdvReac Type Severity Reaction Status Date / Time aspirin Allergy Hives Verified 10/09/17 19:10 celecoxib [From Celebrex] Allergy Mouth Sores Verified 10/09/17 19:10 ibuprofen Allergy Hives Verified 10/09/17 19:10 Latex, Natural Rubber Allergy Itching Verified 10/09/17 19:10 morphine Allergy Nausea Verified 10/09/17 19:10 Penicillins Allergy Hives Verified 10/09/17 19:10 Home Meds: Home Meds Multivitamin [Daily Multiple Vitamin] 1 tab PO DAILY 02/11/13 [History] Omeprazole 40 mg PO DAILY 02/11/13 [History] Docusate Sodium [Doc-Q-Lace] 200 mg PO BEDTIME 07/22/14 [History] Venlafaxine HCl [Venlafaxine ER] 1 tab PO DAILY 04/17/15 [History] Albuterol [Ventolin HFA] 1 inh IH DAILY 09/26/16 [History] Ranitidine [Zantac] 150 mg PO BID 09/26/16 [History] lamoTRIgine [Lamotrigine] 150 mg PO DAILY 09/26/16 [History] metFORMIN [Glucophage] 500 mg PO BID 09/26/16 [History] Past Medical History HEENT History: Reports: Impaired Vision Other HEENT History: enlarged thyroid Respiratory History: Reports: Bronchitis, Recurrent 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 History: Reports: Musculoskeletal History: Reports: Fibromyalgia, Neck Pain, Chronic Neurological History: Reports: Neuropathy, Peripheral Psychiatric History: Reports: Anxiety, Depression Endocrine/Metabolic History: Reports: Other (See Below) Other Endocrine/Metabolic History: enlarged thyroid - Infectious Disease History Infectious Disease History: Reports: Chicken Pox, Shingles - Past Surgical History GI Surgical History: Reports: Bariatric Procedure, EGD Social & Family History - Family History Family Medical History: Noncontributory - Caffeine Use Caffeine Use: Reports: Coffee, Soda - Living Situation & Occupation Living situation: Reports: Alone Occupation: Disabled ED ROS GENERAL - Review of Systems Review Of Systems: ROS reveals no pertinent complaints other than HPI. ED EXAM, BEHAVIORAL HEALTH - Physical Exam Exam: See Below Text/Narrative:: Belligerent Exam Limited By: Intoxication General Appearance: Alert Departure - Departure Time of Disposition: 22:54 Disposition: Eloped 07 Condition: Good Clinical Impression: Depressive disorder - Discharge Information Referrals: Elma Bustillo NP [Primary Care Provider] - Forms: ED Department Discharge - Problem List & Annotations (1) Intoxication SNOMED Code(s): 87656152 Code(s): WRP9392 - Status: Acute (2) Depression SNOMED Code(s): 92678772 Code(s): F32.9 - MAJOR DEPRESSIVE DISORDER, SINGLE EPISODE, UNSPECIFIED Status: Acute Qualifiers: Depression Type: major depressive disorder Major depression recurrence: recurrent Active/Remission status: currently active Major depression episode severity: moderate Qualified Code(s): F33.1 - Major depressive disorder, recurrent, moderate - Problem List Review Problem List Initiated/Reviewed/Updated: Yes - Assessment/Plan Plan: We consulted with Juliana. They felt she needed some form of treatment,and were in the process of looking for a possible treatment-when she changed her mind over her walker and left in a hurry,shouting f words ,despite us entreating her to stay. The police were called,and she was taken in.I did have a conversation with the PD to take her to [place] if she needs further psychiatric help
== END 2018-06-10 22:32 | disposition left against medical advice (07) ==
LOC: FB.ED 20:55
DX: F32.9 Major depressive disorder, single episode, unspecified (principal); F41.9 Anxiety disorder, unspecified; Z88.8 Allergy status to other drugs, medicaments and biological substances; Z88.0 Allergy status to penicillin; Z88.5 Allergy status to narcotic agent; Z79.899 Other long term (current) drug therapy; Z79.84 Long term (current) use of oral hypoglycemic drugs
CPT/HCPCS: 99285

== ENCOUNTER 2022-06-13 21:53 | Emergency (ER) | payer MEDICARE, OTHER, SELFPAY ==
[2022-06-13] MEDS ORDERED: Ondansetron 4 MG Tab.DIS PO ONE (21:54)
[2022-06-13 22:40] VITALS: BP 111/48; PULSE 91
[2022-06-13] MEDS ORDERED: Sodium Chloride 0.9% 10 ML Syringe FLUSH PRN (22:57)
[2022-06-13] MEDS ORDERED: Dextrose 5%-0.9% NaCl 1,000 ML IV SCH (23:00)
[2022-06-13 23:36] LABS: ESTIMATED GFR 86 mL/min (>60)
== END 2022-06-14 00:30 | disposition home or self-care (01) ==
LOC: FB.ED 21:53
DX: E16.2 Hypoglycemia, unspecified (principal); E86.0 Dehydration; R11.0 Nausea; E66.9 Obesity, unspecified; Z88.6 Allergy status to analgesic agent; Z88.1 Allergy status to other antibiotic agents; Z88.0 Allergy status to penicillin; Z79.899 Other long term (current) drug therapy; Z79.84 Long term (current) use of oral hypoglycemic drugs; Z90.49 Acquired absence of other specified parts of digestive tract; Z90.710 Acquired absence of both cervix and uterus; Z72.0 Tobacco use
CPT/HCPCS: 36415; 80053; 82947; 83735; 85025; 96360; 99283; 99284-25; Q0162

== ENCOUNTER 2022-09-08 12:42 | Emergency (ER) | payer MEDICARE ==
[2022-09-08] MEDS: Ondansetron 4 MG Tab.DIS PO ONE (13:45)
[2022-09-08] MEDS: HYDROmorphone 2 MG/ML SDV IM ONE (13:50)
[2022-09-08 14:14] LABS: BASOPHILS ABSOLUTE AUTO 0.1 x10-3/uL (0.0-0.1); BASOPHILS PERCENT AUTO 0.9 % (0.2-1.5); EOSINOPHILS ABSOLUTE AUTO 0.1 x10-3/uL (0.0-0.8); EOSINOPHILS PERCENT AUTO 1.7 % (0.6-8.1); HEMATOCRIT 40.4 % (34.2-48.2); HEMOGLOBIN 13.6 g/dL (11.4-15.5); LYMPHOCYTES ABSOLUTE AUTO 1.7 x10-3/uL (1.0-4.4); LYMPHOCYTES PERCENT AUTO 21.8 % (18.4-52.1); MEAN CORPUSCULAR HEMOGLOBIN 33.6 pg (23.9-33.9); MEAN CORPUSCULAR HGB CONC 33.8 g/dL (31.9-34.8); MEAN CORPUSCULAR VOLUME 99.5 fL (76.7-100.5); MEAN PLATELET VOLUME 8.3 fL (7.1-12.4); MONOCYTES ABSOLUTE AUTO 0.6 x10-3/uL (0.3-1.0); MONOCYTES PERCENT AUTO 8.4 % (4.4-15.7); NEUTROPHILS ABSOLUTE AUTO 5.2 x10-3/uL (1.5-6.3); NEUTROPHILS PERCENT AUTO 67.2 % (30.8-76.2); PLATELET COUNT,PLT 235 x10(3)uL (151-488); RED BLOOD CELL COUNT 4.06 x10(6)uL (3.60-5.20); RED CELL DISTRIBUTION WIDTH 14.7 % (12.3-16.5); WHITE BLOOD CELL COUNT,WBC 7.7 x10-3/uL (3.0-10.3)
[2022-09-08 14:18] LABS: BLOOD UREA NITROGEN,BUN 9 mg/dL (7-18); BUN/CREATININE RATIO 12.9 (9-20); CALCIUM 8.9 mg/dL (8.6-10.2); CARBON DIOXIDE,CO2 29 mmol/L (21-32); CHLORIDE,CL 101 mmol/L (100-110); CREATININE 0.7 mg/dL (0.55-1.02); EST CRCL DRUG DOSING (CG) 70.13 mL/min; ESTIMATED GFR 101 mL/min (>60); GLUCOSE RANDOM 91 mg/dL (80-116); POTASSIUM,K 3.2 mmol/L (3.5-5.3); SODIUM,NA 139 mmol/L (135-145)
[2022-09-08 14:24] LABS: ALANINE AMINOTRANSFERASE,ALT 17 U/L (12-36); ALBUMIN 2.9 g/dL (3.5-5.2); ALKALINE PHOSPHATASE 77 IU/L (56-112); ASPARTATE AMNIOTRANSFERASE,AST 16 IU/L (5-25); BILIRUBIN TOTAL 0.4 mg/dL (0.1-1.3); PROTEIN TOTAL,TP 5.8 g/dL (6.0-8.0)
[2022-09-08] MEDS: Potassium Chloride 20 MEQ Tab.ER PO ONE (15:14)
[2022-09-08 15:32] VITALS: BP 117/53; PULSE 89
== END 2022-09-08 15:53 | disposition home or self-care (01) ==
LOC: FB.ED 12:42
DX: S86.811A Strain of other muscle(s) and tendon(s) at lower leg level, right leg, initial encounter (principal); E87.6 Hypokalemia; Z88.0 Allergy status to penicillin; Z91.040 Latex allergy status; Z88.5 Allergy status to narcotic agent; Z88.8 Allergy status to other drugs, medicaments and biological substances; Z79.84 Long term (current) use of oral hypoglycemic drugs; Z79.899 Other long term (current) drug therapy; Z72.0 Tobacco use; Z96.651 Presence of right artificial knee joint
CPT/HCPCS: 36415; 73562-RT; 80053; 85025; 86140; 96372; 99284; A9270-GY; J1170; Q0162

== ENCOUNTER 2022-09-19 17:41 | Emergency (ER) | payer MEDICARE ==
[2022-09-19] MEDS ORDERED: Sodium Chloride 0.9% 10 ML Syringe FLUSH PRN (18:05)
[2022-09-19] MEDS ORDERED: Ondansetron 4 MG/2 ML SDV IVPUSH ONE (18:08)
[2022-09-19] MEDS ORDERED: Sodium Chloride 0.9% 1,000 ML IV SCH (18:15)
[2022-09-19 18:30] LABS: BASOPHILS ABSOLUTE AUTO 0.1 x10-3/uL (0.0-0.1); EOSINOPHILS ABSOLUTE AUTO 0.1 x10-3/uL (0.0-0.8); EOSINOPHILS PERCENT AUTO 1.5 % (0.6-8.1); HEMATOCRIT 38.4 % (34.2-48.2); HEMOGLOBIN 13.1 g/dL (11.4-15.5); LYMPHOCYTES ABSOLUTE AUTO 1.5 x10-3/uL (1.0-4.4); LYMPHOCYTES PERCENT AUTO 19.5 % (18.4-52.1); MEAN CORPUSCULAR HEMOGLOBIN 33.8 pg (23.9-33.9); MEAN CORPUSCULAR VOLUME 99.3 fL (76.7-100.5); MONOCYTES ABSOLUTE AUTO 0.4 x10-3/uL (0.3-1.0); MONOCYTES PERCENT AUTO 5.6 % (4.4-15.7); NEUTROPHILS ABSOLUTE AUTO 5.5 x10-3/uL (1.5-6.3); NEUTROPHILS PERCENT AUTO 72.4 % (30.8-76.2); PLATELET COUNT,PLT 492 x10(3)uL (151-488); RED BLOOD CELL COUNT 3.87 x10(6)uL (3.60-5.20); RED CELL DISTRIBUTION WIDTH 14.6 % (12.3-16.5); WHITE BLOOD CELL COUNT,WBC 7.6 x10-3/uL (3.0-10.3)
[2022-09-19 18:31] LABS: BLOOD UREA NITROGEN,BUN 4 mg/dL (7-18); BUN/CREATININE RATIO 5.7 (9-20); CALCIUM 8.5 mg/dL (8.6-10.2); CARBON DIOXIDE,CO2 29 mmol/L (21-32); CHLORIDE,CL 104 mmol/L (100-110); CREATININE 0.7 mg/dL (0.55-1.02); EST CRCL DRUG DOSING (CG) 70.13 mL/min; ESTIMATED GFR 101 mL/min (>60); GLUCOSE RANDOM 101 mg/dL (80-116); POTASSIUM,K 3.7 mmol/L (3.5-5.3); SODIUM,NA 140 mmol/L (135-145)
[2022-09-19 18:41] LABS: BILIRUBIN,URINE NEGATIVE (NEGATIVE); GLUCOSE,URINE NORMAL (NORMAL); KETONES,URINE NEGATIVE (NEGATIVE); LEUKOCYTE ESTERASE,URINE NEGATIVE (NEGATIVE); NITRITE,URINE NEGATIVE (NEGATIVE); OCCULT BLOOD,URINE NEGATIVE (NEGATIVE); PH,URINE 6.5 (5.0-6.5); PROTEIN,URINE NEGATIVE (NEGATIVE); UROBILINOGEN,URINE NORMAL (NEGATIVE)
[2022-09-19 18:42] LABS: A/G RATIO 0.9; ALANINE AMINOTRANSFERASE,ALT 13 U/L (12-36); ALBUMIN 2.5 g/dL (3.5-5.2); ALKALINE PHOSPHATASE 103 IU/L (56-112); ASPARTATE AMNIOTRANSFERASE,AST 23 IU/L (5-25); BILIRUBIN TOTAL 0.4 mg/dL (0.1-1.3); PROTEIN TOTAL,TP 5.3 g/dL (6.0-8.0)
[2022-09-19 18:45] LABS: APPEARANCE,URINE CLEAR (CLEAR); COLOR,URINE YELLOW (YELLOW)
[2022-09-19 18:46] LABS: BACTERIA,URINE FEW (NS); SQUAMOUS EPITHELIAL CELLS,UR OCCASIONAL (NS,R,O); WBC,URINE 0-5 (0-5)
[2022-09-19 19:23] VITALS: BP 128/74; PULSE 85
== END 2022-09-19 19:20 | disposition home or self-care (01) ==
LOC: FB.ED 17:41
DX: K52.9 Noninfective gastroenteritis and colitis, unspecified (principal); F17.210 Nicotine dependence, cigarettes, uncomplicated; Z79.899 Other long term (current) drug therapy; Z88.8 Allergy status to other drugs, medicaments and biological substances; Z88.1 Allergy status to other antibiotic agents; Z88.6 Allergy status to analgesic agent; Z91.040 Latex allergy status; Z88.5 Allergy status to narcotic agent; Z88.0 Allergy status to penicillin
CPT/HCPCS: 36415; 71045; 80053; 81001; 85025; 96361; 96374; 99285; J2405; J3490; J7030; 99283

== ENCOUNTER 2022-09-21 09:31 | Emergency (ER) | payer MEDICARE ==
[2022-09-21] MEDS ORDERED: Ondansetron 4 MG/2 ML SDV IVPUSH ONE (09:54)
[2022-09-21] MEDS ORDERED: Sodium Chloride 0.9% 1,000 ML IV SCH (10:00)
[2022-09-21] MEDS ORDERED: fentaNYL 100 MCG/2 ML SDV IVPUSH ONE (10:06)
[2022-09-21 10:15] LABS: BASOPHILS ABSOLUTE AUTO 0.1 x10-3/uL (0.0-0.1); BASOPHILS PERCENT AUTO 1.1 % (0.2-1.5); EOSINOPHILS ABSOLUTE AUTO 0.1 x10-3/uL (0.0-0.8); EOSINOPHILS PERCENT AUTO 1.3 % (0.6-8.1); HEMATOCRIT 40.2 % (34.2-48.2); HEMOGLOBIN 13.4 g/dL (11.4-15.5); LYMPHOCYTES ABSOLUTE AUTO 1.2 x10-3/uL (1.0-4.4); LYMPHOCYTES PERCENT AUTO 15.6 % (18.4-52.1); MEAN CORPUSCULAR HEMOGLOBIN 33.3 pg (23.9-33.9); MEAN CORPUSCULAR HGB CONC 33.4 g/dL (31.9-34.8); MEAN CORPUSCULAR VOLUME 99.6 fL (76.7-100.5); MEAN PLATELET VOLUME 7.1 fL (7.1-12.4); MONOCYTES ABSOLUTE AUTO 0.3 x10-3/uL (0.3-1.0); MONOCYTES PERCENT AUTO 4.3 % (4.4-15.7); NEUTROPHILS ABSOLUTE AUTO 5.8 x10-3/uL (1.5-6.3); NEUTROPHILS PERCENT AUTO 77.7 % (30.8-76.2); PLATELET COUNT,PLT 462 x10(3)uL (151-488); RED BLOOD CELL COUNT 4.04 x10(6)uL (3.60-5.20); RED CELL DISTRIBUTION WIDTH 14.9 % (12.3-16.5); WHITE BLOOD CELL COUNT,WBC 7.5 x10-3/uL (3.0-10.3)
[2022-09-21] MEDS ORDERED: Acetaminophen 650 MG Tab.ER PO ONE (10:15)
[2022-09-21 10:20] LABS: BLOOD UREA NITROGEN,BUN 6 mg/dL (7-18); BUN/CREATININE RATIO 7.5 (9-20); CALCIUM 8.4 mg/dL (8.6-10.2); CARBON DIOXIDE,CO2 27 mmol/L (21-32); CHLORIDE,CL 104 mmol/L (100-110); CREATININE 0.8 mg/dL (0.55-1.02); EST CRCL DRUG DOSING (CG) 61.36 mL/min; ESTIMATED GFR 86 mL/min (>60); GLUCOSE RANDOM 96 mg/dL (80-116); POTASSIUM,K 3.5 mmol/L (3.5-5.3); SODIUM,NA 138 mmol/L (135-145)
[2022-09-21 10:26] LABS: A/G RATIO 0.9; ALANINE AMINOTRANSFERASE,ALT 15 U/L (12-36); ALBUMIN 2.6 g/dL (3.5-5.2); ALKALINE PHOSPHATASE 120 IU/L (56-112); ASPARTATE AMNIOTRANSFERASE,AST 19 IU/L (5-25); BILIRUBIN TOTAL 0.4 mg/dL (0.1-1.3); PROTEIN TOTAL,TP 5.6 g/dL (6.0-8.0)
[2022-09-21] MEDS: Acetaminophen 500 MG Tab PO ONE ×2 (10:31→11:02)
[2022-09-21] MEDS ORDERED: Ketorolac 30 MG/ML SDV IVPUSH ONE (10:59)
[2022-09-21 14:02] VITALS: BP 122/73; PULSE 82
== END 2022-09-21 11:55 | disposition home or self-care (01) ==
LOC: FB.ED 09:31
DX: R53.1 Weakness (principal); F41.9 Anxiety disorder, unspecified; R11.0 Nausea; E86.0 Dehydration; Z88.5 Allergy status to narcotic agent; Z88.0 Allergy status to penicillin; Z91.048 Other nonmedicinal substance allergy status; Z88.8 Allergy status to other drugs, medicaments and biological substances; Z96.641 Presence of right artificial hip joint
CPT/HCPCS: 36415; 80053; 85025; 85651; 86140; 87040; 96361; 96374; 96375; 99285; J1885; J2405; J7030; A9270-GY

== ENCOUNTER 2023-06-26 21:22 | Emergency (ER) | payer MEDICARE, SELFPAY ==
[2023-06-26] MEDS ORDERED: Lidocaine 2% with EPINEPHrine 1:100,000 20 ML MDV INFILT ONE (21:23)
[2023-06-26 22:20] LABS: BASOPHILS ABSOLUTE AUTO 0.1 x10-3/uL (0.0-0.1); BASOPHILS PERCENT AUTO 1.2 % (0.2-1.5); BLOOD UREA NITROGEN,BUN 7 mg/dL (7-18); BUN/CREATININE RATIO 11.7 (9-20); CALCIUM 8.1 mg/dL (8.6-10.2); CARBON DIOXIDE,CO2 25 mmol/L (21-32); CHLORIDE,CL 102 mmol/L (100-110); CREATININE 0.6 mg/dL (0.55-1.02); EOSINOPHILS ABSOLUTE AUTO 0.1 x10-3/uL (0.0-0.8); ESTIMATED GFR 104 mL/min (>60); GLUCOSE RANDOM 98 mg/dL (80-116); HEMATOCRIT 35.1 % (34.2-48.2); HEMOGLOBIN 11.9 g/dL (11.4-15.5); LYMPHOCYTES ABSOLUTE AUTO 2.1 x10-3/uL (1.0-4.4); LYMPHOCYTES PERCENT AUTO 35.3 % (18.4-52.1); MEAN CORPUSCULAR HEMOGLOBIN 33.5 pg (23.9-33.9); MEAN CORPUSCULAR HGB CONC 33.8 g/dL (31.9-34.8); MEAN CORPUSCULAR VOLUME 98.9 fL (76.7-100.5); MEAN PLATELET VOLUME 7.1 fL (7.1-12.4); MONOCYTES ABSOLUTE AUTO 0.3 x10-3/uL (0.3-1.0); MONOCYTES PERCENT AUTO 4.7 % (4.4-15.7); NEUTROPHILS ABSOLUTE AUTO 3.4 x10-3/uL (1.5-6.3); NEUTROPHILS PERCENT AUTO 57.8 % (30.8-76.2); PLATELET COUNT,PLT 263 x10(3)uL (151-488); POTASSIUM,K 3.3 mmol/L (3.5-5.3); RED BLOOD CELL COUNT 3.55 x10(6)uL (3.60-5.20); RED CELL DISTRIBUTION WIDTH 14.6 % (12.3-16.5); SODIUM,NA 139 mmol/L (135-145); WHITE BLOOD CELL COUNT,WBC 5.8 x10-3/uL (3.0-10.3)
[2023-06-26 22:26] LABS: ALANINE AMINOTRANSFERASE,ALT 19 U/L (12-36); ALKALINE PHOSPHATASE 132 IU/L (56-112); ASPARTATE AMNIOTRANSFERASE,AST 18 IU/L (5-25); BILIRUBIN TOTAL 0.3 mg/dL (0.1-1.3); MAGNESIUM 2.1 mg/dL (1.8-2.5); SALICYLATE 5.2 mg/dL (<2.8)
[2023-06-26 22:30] LABS: ACETAMINOPHEN < 2 ug/mL (<2)
[2023-06-26 22:33] LABS: BILIRUBIN,URINE NEGATIVE (NEGATIVE); GLUCOSE,URINE NORMAL (NORMAL); KETONES,URINE NEGATIVE (NEGATIVE); LEUKOCYTE ESTERASE,URINE NEGATIVE (NEGATIVE); NITRITE,URINE NEGATIVE (NEGATIVE); OCCULT BLOOD,URINE NEGATIVE (NEGATIVE); PROTEIN,URINE NEGATIVE (NEGATIVE); UROBILINOGEN,URINE NORMAL (NEGATIVE)
[2023-06-26 22:36] LABS: AMPHETAMINES SCREEN, URINE NEGATIVE (NEGATIVE); APPEARANCE,URINE CLEAR (CLEAR); BACTERIA,URINE RARE (NS); BARBITURATE SCREEN,URINE NEGATIVE (NEGATIVE); BENZODIAZEPINES SCREEN,URINE NEGATIVE (NEGATIVE); COLOR,URINE YELLOW (YELLOW); METHADONE SCREEN, URINE NEGATIVE (NEGATIVE); METHAMPHETAMINE SCREEN, URINE NEGATIVE (NEGATIVE); OXYCODONE SCREEN,URINE NEGATIVE (NEGATIVE); RBC,URINE 0-5 (0-5); SQUAMOUS EPITHELIAL CELLS,UR OCCASIONAL (NS,R,O); THC SCREEN,URINE NEGATIVE (NEGATIVE); WBC,URINE 0-5 (0-5)
[2023-06-26 22:37] LABS: BUPRENORPHINE SCREEN,URINE NEGATIVE (NEGATIVE)
[2023-06-26 22:50] LABS: TSH ULTRASENSITIVE 0.75 IU/mL (0.36-3.74)
[2023-06-26 22:52] LABS: ETHANOL BLOOD MEDICAL 0.17 % (<0.03)
[2023-06-26] MEDS: Diphtheria,Pertussis(Acell),Tetanus Vaccine 0.5 ML Syringe IM ONE (23:16)
[2023-06-26 23:58] VITALS: BP 102/66; PULSE 90
== END 2023-06-27 02:55 | disposition home or self-care (01) ==
LOC: FB.ED 21:22
DX: S61.512A Laceration without foreign body of left wrist, initial encounter (principal); F10.120 Alcohol abuse with intoxication, uncomplicated; F17.200 Nicotine dependence, unspecified, uncomplicated; Z79.51 Long term (current) use of inhaled steroids; Z79.899 Other long term (current) drug therapy; Z88.6 Allergy status to analgesic agent; Z91.040 Latex allergy status; Z88.5 Allergy status to narcotic agent; Z88.0 Allergy status to penicillin; Z88.8 Allergy status to other drugs, medicaments and biological substances; Z90.49 Acquired absence of other specified parts of digestive tract; Z23 Encounter for immunization; X78.9XXA Intentional self-harm by unspecified sharp object, initial encounter; Y90.9 Presence of alcohol in blood, level not specified
CPT/HCPCS: 12004; 12034; 36415; 80053; 80143; 80179; 80307; 81001; 83735; 84443; 85025; 90471; 90715; 99284; 99284-25

== ENCOUNTER 2023-12-24 13:51 | Emergency (ER) | payer MEDICARE ==
[2023-12-24 14:40] LABS: BASOPHILS ABSOLUTE AUTO 0.1 x10-3/uL (0.0-0.1); BASOPHILS PERCENT AUTO 1.1 % (0.2-1.5); EOSINOPHILS ABSOLUTE AUTO 0.1 x10-3/uL (0.0-0.8); EOSINOPHILS PERCENT AUTO 0.8 % (0.6-8.1); HEMOGLOBIN 13.5 g/dL (11.4-15.5); LYMPHOCYTES PERCENT AUTO 26.3 % (18.4-52.1); MEAN CORPUSCULAR HEMOGLOBIN 30.8 pg (23.9-33.9); MEAN CORPUSCULAR HGB CONC 32.9 g/dL (31.9-34.8); MEAN CORPUSCULAR VOLUME 93.7 fL (76.7-100.5); MEAN PLATELET VOLUME 8.7 fL (7.1-12.4); MONOCYTES ABSOLUTE AUTO 0.4 x10-3/uL (0.3-1.0); MONOCYTES PERCENT AUTO 4.8 % (4.4-15.7); PLATELET COUNT,PLT 294 x10(3)uL (151-488); RED BLOOD CELL COUNT 4.38 x10(6)uL (3.60-5.20); RED CELL DISTRIBUTION WIDTH 14.9 % (12.3-16.5); WHITE BLOOD CELL COUNT,WBC 7.4 x10-3/uL (3.0-10.3)
[2023-12-24 14:42] LABS: BILIRUBIN,URINE NEGATIVE (NEGATIVE); GLUCOSE,URINE NORMAL (NORMAL); KETONES,URINE NEGATIVE (NEGATIVE); LEUKOCYTE ESTERASE,URINE NEGATIVE (NEGATIVE); NITRITE,URINE NEGATIVE (NEGATIVE); OCCULT BLOOD,URINE NEGATIVE (NEGATIVE); PH,URINE 6.5 (5.0-6.5); PROTEIN,URINE NEGATIVE (NEGATIVE); UROBILINOGEN,URINE NORMAL (NEGATIVE)
[2023-12-24 14:44] LABS: BLOOD UREA NITROGEN,BUN 8 mg/dL (7-18); BUN/CREATININE RATIO 8.9 (9-20); CALCIUM 8.7 mg/dL (8.6-10.2); CARBON DIOXIDE,CO2 23 mmol/L (21-32); CHLORIDE,CL 107 mmol/L (100-110); CREATININE 0.9 mg/dL (0.55-1.02); ESTIMATED GFR 74 mL/min (>60); GLUCOSE RANDOM 103 mg/dL (80-116); POTASSIUM,K 3.5 mmol/L (3.5-5.3); SODIUM,NA 140 mmol/L (135-145)
[2023-12-24 14:50] LABS: APPEARANCE,URINE CLEAR (CLEAR); BACTERIA,URINE FEW (NS); COLOR,URINE YELLOW (YELLOW); SQUAMOUS EPITHELIAL CELLS,UR OCCASIONAL (NS,R,O); WBC,URINE 0-5 (0-5)
[2023-12-24] MEDS: Sodium Chloride 0.9% 1,000 ML IV ONE (14:53)
[2023-12-24 14:54] LABS: A/G RATIO 1.2; ALANINE AMINOTRANSFERASE,ALT 17 U/L (12-36); ALBUMIN 3.3 g/dL (3.5-5.2); ALKALINE PHOSPHATASE 149 IU/L (56-112); ASPARTATE AMNIOTRANSFERASE,AST 19 IU/L (5-25); BILIRUBIN TOTAL 0.3 mg/dL (0.1-1.3); PROTEIN TOTAL,TP 6.1 g/dL (6.0-8.0)
[2023-12-24 15:01] VITALS: BP 115/69; PULSE 71
== END 2023-12-24 15:20 | disposition home or self-care (01) ==
LOC: FB.ED 13:51
DX: R19.7 Diarrhea, unspecified (principal); F17.210 Nicotine dependence, cigarettes, uncomplicated; Z90.49 Acquired absence of other specified parts of digestive tract; Z79.899 Other long term (current) drug therapy; Z88.6 Allergy status to analgesic agent; Z88.1 Allergy status to other antibiotic agents; Z88.0 Allergy status to penicillin; Z88.5 Allergy status to narcotic agent; Z88.8 Allergy status to other drugs, medicaments and biological substances; Z91.040 Latex allergy status
CPT/HCPCS: 36415; 80053; 81001; 83690; 85025; 99284; J7030

== ENCOUNTER 2024-11-29 20:21 | Emergency (ER) | payer MEDICARE ==
[2024-11-29] MEDS ORDERED: Sodium Chloride 0.9% 10 ML Syringe FLUSH PRN (20:24)
[2024-11-29 20:36] LABS: BASOPHILS ABSOLUTE AUTO 0.0 x10-3/uL (0.0-0.1); BASOPHILS PERCENT AUTO 0.8 % (0.2-1.5); EOSINOPHILS ABSOLUTE AUTO 0.1 x10-3/uL (0.0-0.8); EOSINOPHILS PERCENT AUTO 1.1 % (0.6-8.1); LYMPHOCYTES ABSOLUTE AUTO 3.0 x10-3/uL (1.0-4.4); LYMPHOCYTES PERCENT AUTO 48.5 % (18.4-52.1); MEAN PLATELET VOLUME 8.2 fL (7.1-12.4); MONOCYTES ABSOLUTE AUTO 0.3 x10-3/uL (0.3-1.0); MONOCYTES PERCENT AUTO 4.6 % (4.4-15.7); NEUTROPHILS ABSOLUTE AUTO 2.8 x10-3/uL (1.5-6.3); NEUTROPHILS PERCENT AUTO 45.0 % (30.8-76.2); PLATELET COUNT,PLT 276 x10(3)uL (151-488); RED BLOOD CELL COUNT 4.02 x10(6)uL (3.60-5.20); RED CELL DISTRIBUTION WIDTH 13.6 % (12.3-16.5); WHITE BLOOD CELL COUNT,WBC 6.2 x10-3/uL (3.0-10.3)
[2024-11-29 20:53] LABS: A/G RATIO 1.2; ALANINE AMINOTRANSFERASE,ALT 15 U/L (12-36); ASPARTATE AMNIOTRANSFERASE,AST 17 IU/L (5-25); BILIRUBIN TOTAL 0.2 mg/dL (0.1-1.3); BLOOD UREA NITROGEN,BUN 7 mg/dL (7-18); CARBON DIOXIDE,CO2 22 mmol/L (21-32); CHLORIDE,CL 104 mmol/L (100-110); CREATININE 0.9 mg/dL (0.55-1.02); EST CRCL DRUG DOSING (CG) 65.45 mL/min; ESTIMATED GFR 74 mL/min (>60); GLUCOSE RANDOM 89 mg/dL (80-116); PROTEIN TOTAL,TP 6.2 g/dL (6.0-8.0); SODIUM,NA 138 mmol/L (135-145)
[2024-11-29 20:57] LABS: PRO B-TYPE NATRIUR PEPT,BNPPRO 172.0 pg/mL (<=125)
[2024-11-29 20:58] LABS: POTASSIUM,K 2.7 mmol/L (3.5-5.3)
[2024-11-29 20:59] LABS: ETHANOL BLOOD MEDICAL 0.17 % (<0.03)
[2024-11-29 21:31] VITALS: BP 97/55; PULSE 77
[2024-11-29] MEDS: NS + KCl 20mEq/L 1,000 ML IV SCH (21:41)
[2024-11-29] MEDS ORDERED: LORazepam 2 MG/ML SDV IVPUSH PRN (21:50)
[2024-11-30] LABS: METHAMPHETAMINE SCREEN, URINE NEGATIVE (NEGATIVE)
[2024-11-30 00:01] LABS: AMPHETAMINES SCREEN, URINE NEGATIVE (NEGATIVE); BUPRENORPHINE SCREEN,URINE NEGATIVE (NEGATIVE); METHADONE SCREEN, URINE NEGATIVE (NEGATIVE); OXYCODONE SCREEN,URINE NEGATIVE (NEGATIVE)
== END 2024-11-29 23:50 | disposition home or self-care (01) ==
LOC: FB.ED 20:21
DX: T48.1X2A Poisoning by skeletal muscle relaxants [neuromuscular blocking agents], intentional self-harm, initial encounter (principal); T42.4X2A Poisoning by benzodiazepines, intentional self-harm, initial encounter; T42.6X2A Poisoning by other antiepileptic and sedative-hypnotic drugs, intentional self-harm, initial encounter; F10.129 Alcohol abuse with intoxication, unspecified; E86.0 Dehydration; I25.2 Old myocardial infarction; R06.9 Unspecified abnormalities of breathing; Z98.84 Bariatric surgery status; Z90.49 Acquired absence of other specified parts of digestive tract; Z88.0 Allergy status to penicillin; Z88.6 Allergy status to analgesic agent; Z88.8 Allergy status to other drugs, medicaments and biological substances; Z91.040 Latex allergy status; Z79.51 Long term (current) use of inhaled steroids; Z79.899 Other long term (current) drug therapy; Y90.0 Blood alcohol level of less than 20 mg/100 ml
CPT/HCPCS: 36415; 80053; 80143; 80179; 80307; 83880; 84484; 85025; 93005; 93010; 96365; 96366; 99284; 99285; J3480; J7040